=== PATIENT | female | born 1935 | race Caucasian/White ===

== ENCOUNTER → 2016-05-12 | Outpatient (CLI) | payer MEDICARE, BC, MEDICAID | END | disposition short-term general hospital (02) | LOC: CLONCO 12:17 | DX: N18.9 Chronic kidney disease, unspecified (principal); D63.1 Anemia in chronic kidney disease ==

== ENCOUNTER → 2016-05-22 | Outpatient (CLI) | payer MEDICARE, BC, MEDICAID | END | disposition short-term general hospital (02) | LOC: CLCARD 09:00 | DX: I13.0 Hypertensive heart and chronic kidney disease with heart failure and stage 1 through stage 4 chronic kidney disease, or unspecified chronic kidney disease (principal); I50.22 Chronic systolic (congestive) heart failure; N18.9 Chronic kidney disease, unspecified; I48.91 Unspecified atrial fibrillation; R60.0 Localized edema; Z79.82 Long term (current) use of aspirin ==

== ENCOUNTER → 2016-08-21 | Outpatient (CLI) | payer MEDICARE, BC, MEDICAID | END | disposition short-term general hospital (02) | LOC: CLCARD 08:54 | DX: I13.0 Hypertensive heart and chronic kidney disease with heart failure and stage 1 through stage 4 chronic kidney disease, or unspecified chronic kidney disease (principal); E11.22 Type 2 diabetes mellitus with diabetic chronic kidney disease; I50.23 Acute on chronic systolic (congestive) heart failure; N18.9 Chronic kidney disease, unspecified; I42.9 Cardiomyopathy, unspecified; I48.91 Unspecified atrial fibrillation; I07.1 Rheumatic tricuspid insufficiency; D63.1 Anemia in chronic kidney disease; R60.0 Localized edema; E66.9 Obesity, unspecified; Z95.2 Presence of prosthetic heart valve; Z86.73 Personal history of transient ischemic attack (TIA), and cerebral infarction without residual deficits; Z79.01 Long term (current) use of anticoagulants ==